=== PATIENT | male | born 1985 | race Caucasian/White ===

== ENCOUNTER 2017-11-07 13:29 | Emergency (ER) | payer OTHER ==
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
--- NOTE | 2017-11-07 15:09 | RADIOLOGY IMAGING REPORT ---
FACILITY: [facility] PATIENT NAME: Cuate Mayorga : 1985 MR: [id number] V: [id number] EXAM DATE: ORDERING PHYSICIAN: AFSHIN LE TECHNOLOGIST: Location: [facility] - [place] Patient: Cuate Mayorga : 1985 Visit/Account:[id number] Date of [facility]: 11/07/2017 EXAMINATION: CT Cervical spine without intravenous contrast HISTORY: Trauma. Neck pain. COMPARISON: None available. TECHNIQUE: Noncontrast axial CT of the cervical spine with sagittal and coronal reformats. One of the following dose optimization techniques was utilized in the performance of this exam: Autom ated exposure control; adjustment of the mA and/or kV according to the patient's size; or use of an i terative reconstruction technique. Specific details can be referenced in the facility's radiology C T exam operational policy. FINDINGS: Alignment: Minimal convex rightward curvature and straightening of the normal lordosis. Cranio-cervical junction: Negative. Vertebral bodies: Negative. Posterior elements: Negative. Hardware: None. Disc Spaces: Negative. Soft tissues: Negative. Visualized upper chest: Negative. IMPRESSION: 1. No acute cervical spine fracture. 2. Minimal convex rightward curvature and straightening of the normal lordosis may be secondary to p ositioning or muscle spasm. Report Dictated By: Afshin Tomas MD at 11/07/2017 3:01 PM Report E-Signed By: Afshin Tomas MD at 11/07/2017 3:06 PM WSN:[id number]
[2017-11-07 15:29] VITALS: BP 120/87
== END 2017-11-07 15:35 | disposition home or self-care (01) ==
LOC: ER 14:06
DX: S16.1XXA Strain of muscle, fascia and tendon at neck level, initial encounter (principal); V87.7XXA Person injured in collision between other specified motor vehicles (traffic), initial encounter
CPT/HCPCS: 72125; 99284; L0172